=== PATIENT | female | born 1990 | race American Indian/Alaskan Native ===

== ENCOUNTER 2021-05-25 18:23 | Emergency (ER) | payer MEDICAID ==
[2021-05-25 18:51] VITALS: BP 124/66
[2021-05-25] MEDS ORDERED: LIDOCAINE VISCOUS 2% 15 ML ORAL LIQD PO ONE (19:43)
[2021-05-25] MEDS ORDERED: ALUM-MAG HYDROXIDE-SIMETHICONE 200-200-20MG/5ML ORAL LIQD 30 ML PO ONE (19:43)
[2021-05-25 20:12] LABS: Basophils % (Auto) 0.9 % (0.0-1.8); Eosinophils # (Auto) 0.2 K/mm3 (0.0-0.4); Hematocrit 39.1 % (30.3-42.9); Hemoglobin 13.7 gm/dl (10.1-14.3); Lymphocytes # (Auto) 1.7 K/mm3 (1.2-5.4); Lymphocytes % (Auto) 30.7 % (13.4-35.0); Mean Corpuscular HGB Conc 35 % (30-34); Mean Corpuscular Volume 92 fl (79-97); Monocytes # (Auto) 0.5 K/mm3 (0.0-0.8); Monocytes % (Auto) 8.9 % (0.0-7.3); Platelet Count 249 K/mm3 (140-440); Red Blood Count 4.25 M/mm3 (3.65-5.03); Red Cell Distribution Width 12.9 % (13.2-15.2)
[2021-05-25 20:34] LABS: Alanine Aminotransferase 22 units/L (7-56); BUN/Creatinine Ratio 14; Blood Urea Nitrogen 11 mg/dL (7-17); Calcium 9.3 mg/dL (8.4-10.2); Hemolysis Index 39
--- NOTE | 2021-05-25 21:30 | XRay Report ---
CHEST 2 VIEWS INDICATION / CLINICAL INFORMATION: substernal chest pain. COMPARISON: None available. FINDINGS: SUPPORT DEVICES: None. HEART / MEDIASTINUM: No significant abnormality. LUNGS / PLEURA: No significant pulmonary or pleural abnormality. No pneumothorax. ADDITIONAL FINDINGS: No significant additional findings. IMPRESSION: 1. No acute findings. Signer Name: Danyell Snow MD Signed: 05/25/2021 9:26 PM Workstation Name: [id number]
--- NOTE | 2021-05-25 21:45 | Emergency Department Report ---
ED General Adult HPI - General Chief complaint: Abdominal Pain Stated complaint: CHEST PAIN Source: patient Mode of arrival: Ambulatory Limitations: No Limitations - History of Present Illness Initial comments: Patient is a 31-year-old -Gabonese female with a history of hypertension who presents to the ED with complaint of acute onset persistent intermittent anterior substernal chest wall discomfort that radiates to the epigastric area with each episode of swallowing food or drinking fluids for the last 24 hours. Patient states that the discomfort has been persistent especially whenever she swallows food or drinks, and that the feeling is as if something is stuck in her esophagus. Patient however states that the food does not regurgitate back but that the food appears to be entering the stomach with no difficulty although the discomfort has been persistent. Patient denies chest pain, shortness of breath, cough, fever, chills, dysphonia, traumatic injury, hematemesis, hemoptysis, hematochezia, diarrhea, abdominal pain or palpitations and vomiting or sore throat. MD Complaint: Epigastric and substernal chest discomfort with swallowing -: Sudden, hour(s) (24) Location: chest, abdomen Radiation: abdomen Severity scale (0 -10): 3 Quality: aching, dull Consistency: intermittent Improves with: none Worsens with: eating, other (swallowing foot or water) Associated Symptoms: denies other symptoms, chest pain (Anterior substernal chest wall discomfort with swallowing food). denies: confusion, cough, diap horesis, fever/chills, headaches, loss of appetite, malaise, nausea/vomiting, rash, seizure, shortness of breath, syncope, weakness Treatments Prior to Arrival: none - Related Data Previous Rx's Medication Instructions Recorded Last Taken Type Esomeprazole Magnesium [NexIUM] 40 mg PO QDAY #30 capsule. 05/25/21 Unknown Rx Famotidine [Pepcid] 20 mg PO BID #60 tablet 05/25/21 Unknown Rx Allergies Allergy/AdvReac Type Severity Reaction Status Date / Time No Known Allergies Allergy Unverified 05/25/21 18:40 ED Review of Systems ROS: Stated complaint: CHEST PAIN Other details as noted in HPI Constitutional: denies: chills, fever Eyes: denies: eye pain, eye discharge, vision change ENT: denies: ear pain, throat pain Respiratory: denies: cough, shortness of breath, wheezing Cardiovascular: chest pain (anterior substernal chest discomfort with swallowing food). denies: palpitations Endocrine: no symptoms reported Gastrointestinal: abdominal pain (mild epigastric discomfort). denies: nausea, vomiting, diarrhea Genitourinary: denies: urgency, dysuria, discharge Musculoskeletal: denies: back pain, joint swelling, arthralgia Skin: denies: rash, lesions Neurological: denies: headache, weakness, paresthesias Psychiatric: denies: anxiety, depression Hematological/Lymphatic: denies: easy bleeding, easy bruising ED Past Medical Hx - Past Medical History Previous Medical History?: Yes Hx Hypertension: Yes - Surgical History Past Surgical History?: Yes Additional Surgical History: right knee - Social History Smoking Status: Current Every Day Smoker Substance Use Type: Alcohol, Marijuana - Medications Home Medications: Home Medications Medication Instructions Recorded Confirmed Last Taken Type Esomeprazole Magnesium [NexIUM] 40 mg PO QDAY #30 capsule. 05/25/21 Unknown Rx Famotidine [Pepcid] 20 mg PO BID #60 tablet 05/25/21 Unknown Rx ED Physical Exam - General Limitations: No Limitations General appearance: alert, in no apparent distress - Head Head exam: Present: atraumatic, normocephalic, normal inspection - Eye Eye exam: Present: normal appearance, PERRL, EOMI Pupils: Present: normal accommodation - ENT ENT exam: Present: normal exam, normal orophraynx, mucous membranes moist, TM's normal bilaterally, normal external ear exam - Neck Neck exam: Present: normal inspection, full ROM - Respiratory Respiratory exam: Present: normal lung sounds bilaterally. Absent: respiratory distress, wheezes, rales, stridor, chest wall tenderness, accessory muscle use, decreased breath sounds, other - Cardiovascular Cardiovascular Exam: Present: regular rate, normal rhythm, normal heart sounds. Absent: systolic murmur, diastolic murmur, rubs, gallop - GI/Abdominal GI/Abdominal exam: Present: soft, normal bowel sounds. Absent: tenderness, guarding, rebound, hyperactive bowel sounds, hypoactive bowel sounds, organomegaly - Extremities Exam Extremities exam: Present: normal inspection, full ROM, normal capillary refill - Back Exam Back exam: Present: normal inspection, full ROM. Absent: tenderness, CVA tenderness (R), CVA tenderness (L), muscle spasm - Neurological Exam Neurological exam: Present: alert, oriented X3, CN II-XII intact, normal gait, reflexes normal - Psychiatric Psychiatric exam: Present: normal affect, normal mood, anxious - Skin Skin exam: Present: warm, dry, intact, normal color. Absent: rash ED Course Vital Signs 05/25/21 18:44 Temperature 98.5 F Pulse Rate 88 Respiratory 18 Rate Blood Pressure 124/66 O2 Sat by Pulse 99 Oximetry ED Medical Decision Making - Lab Data Result diagrams: 05/25/21 19:48 05/25/21 19:48 - Radiology Data Radiology results: report reviewed, image reviewed [facility] [address] [place] [address] XRay Report Signed Patient: GIA STEPHENSON MR# : [id number] : 1990 Acct:[id number] Age/Sex: 31 / F ADM Date: 05/25/21 Loc: ED Attending Dr: Ordering Physician: TR KHAN Date of Service: 05/25/21 Procedure(s): XR chest routine 2V Accession Number(s): [id number] cc: TR KHAN Fluoro Time In Minutes: CHEST 2 VIEWS INDICATION / CLINICAL INFORMATION: substernal chest pain. COMPARISON: None available. FINDINGS: SUPPORT DEVICES: None. HEART / MEDIASTINUM: No significant abnormality. LUNGS / PLEURA: No significant pulmonary or pleural abnormality. No pneumothorax. ADDITIONAL FINDINGS: No significant additional findings. IMPRESSION: 1. No acute findings. Signer Name: Danyell Snow MD Signed: 05/25/2021 9:26 PM Workstation Name: [id number] Transcribed By: DT Dictated By: Milan Snow MD Electronically Authenticated By: Milan Snow MD Signed Date/Time: 05/25/212125 DD/ 25 TD/TT: - Medical Decision Making This is a 31-year-old -Gabonese female with a history of hypertension who presents to the ED with complaint of acute onset persistent intermittent anterior substernal chest wall discomfort that radiates to the epigastric area with each episode of swallowing food or drinking fluids for the last 24 hours. Patient states that the discomfort has been persistent especially whenever she swallows food or drinks, and that the feeling is as if something is stuck in her esophagus. Patient however states that the food does not regurgitate back but that the food appears to be entering the stomach with no difficulty although the discomfort has been persistent. In the ED, patient is alert and oriented x3 and is not in any distress with normal vital signs. Lab test results were reviewed and are all nonactionable. Chest x-ray showed no acute cardiopulmonary abnormalities or pneumonitis. Patient was treated in the ED with the oral GI cocktail in the ED. On reevaluation, patient's discomfort resolved with medications. Patient symptoms are likely due to GERD or esophageal abrasion or inflammation. Patient was therefore discharged home on antacids and also pain medication, and was given a referral to the [place] garbage collector driver for further evaluation and possible endoscopy procedure. Patient was advised to contact the [place] garbage collector driver first in the morning on Wednesday May 26, 2021 to schedule a follow-up appointment for possible endoscopy procedure. Patient was however advised return to the ED immediately if symptoms get worse. - Differential Diagnosis GERD; esophagitis; esophageal abrasion; esophageal spasm Critical care attestation.: If time is entered above; I have spent that time in minutes in the direct care of this critically ill patient, excluding procedure time. ED Disposition Clinical Impression: GERD (gastroesophageal reflux disease) Qualifiers: Esophagitis presence: esophagitis presence not specified Qualified Code(s): K21.9 - Gastro-esophageal reflux disease without esophagitis Esophageal abrasion Qualifiers: Encounter type: initial encounter Qualified Code(s): S27.818A - Other injury of esophagus (thoracic part), initial encounter Disposition: HOME / SELF CARE / HOMELESS Is pt being admited?: No Does the pt Need Aspirin: No Condition: Stable Instructions: Abdominal Pain (ED), Food Choices for Gastroesophageal Reflux Disease, Adult, Heartburn, [id number], Gastroesophageal Reflux Disease, Adult, [id number] Additional Instructions: All lab test results were reviewed and are all nonactionable. Chest x-ray showed no acute cardiopulmonary abnormalities or pneumonitis. Your symptoms are likely due to GERD or esophageal abrasion due to food intake. Therefore take medications as advised, drink plenty of fluids and follow-up with your primary care physician in 3 to 5 days for reevaluation. Consider following up with the [place] garbage collector driver physicians, in the next 24 to 48 hours for further evaluation. Contact [place] garbage [facility] driver office first thing in the morning on Wednesday, May 26, 2021 to schedule a follow-up appointment for a possible endoscopic procedure to rule out abnormalities with your esophagus. Return to the ED immediately if symptoms get worse. Prescriptions: Esomeprazole Magnesium [NexIUM] 40 mg PO QDAY #30 capsule. Famotidine [Pepcid] 20 mg PO BID #60 tablet Referrals: YAKOV ROWLAND MD [Staff Physician] - [facility] Time of Disposition: 21:48 Print Language: LAO
== END 2021-05-26 06:25 | disposition home or self-care (01) ==
LOC: ED 18:23
DX: S27.818A Other injury of esophagus (thoracic part), initial encounter (principal); K21.9 Gastro-esophageal reflux disease without esophagitis; X58.XXXA Exposure to other specified factors, initial encounter; I10 Essential (primary) hypertension; F17.200 Nicotine dependence, unspecified, uncomplicated; F10.20 Alcohol dependence, uncomplicated; F12.90 Cannabis use, unspecified, uncomplicated; Y93.89 Activity, other specified; Y92.89 Other specified places as the place of occurrence of the external cause; Y99.8 Other external cause status
CPT/HCPCS: 36415; 71046; 80053; 84703; 85025; 99284

== ENCOUNTER 2021-12-29 13:19 | Emergency (ER) | payer MEDICAID ==
--- NOTE | 2021-12-29 18:09 | Emergency Department Report ---
- General Chief complaint: Skin Rash Stated complaint: BREAKING OUT ALL OVER BODY Time Seen by Provider: 12/29/21 17:42 Source: patient Mode of arrival: Ambulatory Limitations: No Limitations - History of Present Illness Initial comments: Patient is a 31-year-old female presents emergency room complaints of an intermittent skin rash that began 5 days ago. She states that it comes and goes. She states it appears as small raised red bumps and she has diffuse itching and that it improves. She denies any new soaps, lotions, detergents, medications, foods, antibiotics. She denies any difficulty swallowing, difficulty breathing, fever, chills, nausea, vomiting. She denies any known allergies. Past medical history of hypertension and migraines. - Related Data Previous Rx's Medication Instructions Recorded Last Taken Type Esomeprazole Magnesium [NexIUM] 40 mg PO QDAY #30 capsule. 05/25/21 Unknown Rx Famotidine [Pepcid] 20 mg PO BID #60 tablet 05/25/21 Unknown Rx Hydrocortisone 1% [Hydrocortisone 1 applicatio TP TID #1 tube 12/29/21 Unknown Rx 1% CREAM] Loratadine 10 mg PO DAILY #14 tab 12/29/21 Unknown Rx diphenhydrAMINE [Benadryl CAP] 25 mg PO Q6HR PRN #30 capsule 12/29/21 Unknown Rx Allergies Allergy/AdvReac Type Severity Reaction Status Date / Time No Known Allergies Allergy Verified 12/29/21 15:37 Abscess Boil HPI - HPI Chief Complaint: Skin Rash Stated Complaint: BREAKING OUT ALL OVER BODY Time Seen by Provider: 12/29/21 17:42 Home Medications: Previous Rx's Medication Instructions Recorded Last Taken Type Esomeprazole Magnesium [NexIUM] 40 mg PO QDAY #30 capsule. 05/25/21 Unknown Rx Famotidine [Pepcid] 20 mg PO BID #60 tablet 05/25/21 Unknown Rx Hydrocortisone 1% [Hydrocortisone 1 applicatio TP TID #1 tube 12/29/21 Unknown Rx 1% CREAM] Loratadine 10 mg PO DAILY #14 tab 12/29/21 Unknown Rx diphenhydrAMINE [Benadryl CAP] 25 mg PO Q6HR PRN #30 capsule 12/29/21 Unknown Rx Allergies/Adverse Reactions: Allergies Allergy/AdvReac Type Severity Reaction Status Date / Time No Known Allergies Allergy Verified 12/29/21 15:37 ED Review of Systems ROS: Stated complaint: BREAKING OUT ALL OVER BODY Other details as noted in HPI Comment: All other systems reviewed and negative ED Past Medical Hx - Past Medical History Previous Medical History?: No Hx Hypertension: Yes - Surgical History Additional Surgical History: right knee - Social History Smoking Status: Current Every Day Smoker Substance Use Type: Alcohol, Marijuana - Medications Home Medications: Home Medications Medication Instructions Recorded Confirmed Last Taken Type Esomeprazole Magnesium [NexIUM] 40 mg PO QDAY #30 capsule.dr 05/25/21 Unknown Rx Famotidine [Pepcid] 20 mg PO BID #60 tablet 05/25/21 Unknown Rx Hydrocortisone 1% [Hydrocortisone 1 applicatio TP TID #1 tube 12/29/21 Unknown Rx 1% CREAM] Loratadine 10 mg PO DAILY #14 tab 12/29/21 Unknown Rx diphenhydrAMINE [Benadryl CAP] 25 mg PO Q6HR PRN #30 capsule 12/29/21 Unknown Rx ED Physical Exam - General Limitations: No Limitations General appearance: alert, in no apparent distress - Head Head exam: Present: atraumatic, normocephalic - Eye Eye exam: Present: normal appearance - ENT ENT exam: Present: mucous membranes moist, other (no angioedema) - Respiratory Respiratory exam: Absent: respiratory distress, accessory muscle use - Neurological Exam Neurological exam: Present: alert, oriented X3 - Psychiatric Psychiatric exam: Present: normal affect, normal mood - Skin Skin exam: Present: warm, dry, intact. Absent: rash, erythema, urticaria, vesicles, petechiae, ecchymosis ED Course Vital Signs 12/29/21 12/29/21 15:36 18:25 Temperature 97.0 F L 98.1 F Pulse Rate 78 78 Respiratory 16 18 Rate Blood Pressure 136/69 Blood Pressure 118/88 [Right] O2 Sat by Pulse 100 100 Oximetry ED Medical Decision Making - Medical Decision Making Patient is a 31-year-old female presents emergency room complaints of an intermittent skin rash that began 5 days ago. She states that it comes and goes. She states it appears as small raised red bumps and she has diffuse itching and that it improves. She denies any new soaps, lotions, detergents, medications, foods, antibiotics. She denies any difficulty swallowing, difficulty breathing, fever, chills, nausea, vomiting. She denies any known allergies. Past medical history of hypertension and migraines. Vitals are stable. Skin examination is within normal limits, there are no signs of rash, no signs of allergic reaction, no skin denuding, no blistering. Patient given prescription for medication. Discussed the importance of outpatient primary care and dermatology follow-up. Discussed return precautions advised to emergency room for any new or worsening symptoms. Critical care attestation.: If time is entered above; I have spent that time in minutes in the direct care of this critically ill patient, excluding procedure time. ED Disposition Clinical Impression: Pruritus Disposition: HOME / SELF CARE / HOMELESS Is pt being admited?: No Does the pt Need Aspirin: No Condition: Stable Instructions: Pruritus Additional Instructions: Please follow-up with your primary care doctor. Please follow-up with a executive assistant to president. Use medication as prescribed. Return to emergency room for any new or worsening symptoms. Prescriptions: diphenhydrAMINE [Benadryl CAP] 25 mg PO Q6HR PRN #30 capsule PRN Reason: itching Hydrocortisone 1% [Hydrocortisone 1% CREAM] 1 applicatio TP TID #1 tube Loratadine 10 mg PO DAILY #14 tab Referrals: PRIMARY CARE, [Primary Care Provider] - 3-5 Days JUVE MCGOVERN MD [Staff Physician] - 3-5 Days Time of Disposition: 18:07 Print Language: KHMER
[2021-12-29 18:26] VITALS: BP 118/88
== END 2021-12-29 18:26 | disposition home or self-care (01) ==
LOC: ED 13:19
DX: L29.9 Pruritus, unspecified (principal); I10 Essential (primary) hypertension; Z98.890 Other specified postprocedural states; F17.200 Nicotine dependence, unspecified, uncomplicated
CPT/HCPCS: 99282